=== PATIENT | male | born 1940 | race Caucasian/White ===

== ENCOUNTER 2018-02-03 06:50 | Inpatient (IN) | payer OTHER ==
[~2018-02-03] VITALS: Ht 167.6 cm; Wt 121.9 kg
[~2018-02-03 06:50] MED LIST: DOXYCYCLINE 10100 MG PO; NOHOMEMEDICATIONS
[2018-02-03 06:56] VITALS: BP 147/78
[2018-02-03] MEDS ORDERED: SIMVASTATIN40 MG PO (06:59)
[2018-02-03] MEDS ORDERED: PRIMIDONE 250M250 M1 PO (07:08)
[2018-02-03 07:17] LABS: ABSOLUTE EOSINOPHILS 0.1 thou/uL (0.0-0.7); ABSOLUTE LYMPHOCYTES 1.6 thou/uL (0.8-5.3); ABSOLUTE NEUTROPHILS 5.9 thou/uL (1.6-8.1); BASOPHILS 0.5 %; EOSINOPHILS 1.5 %; HEMATOCRIT 43.7 % (42.0-52.0); HEMOGLOBIN 14.7 gm/dL (14.0-18.0); LYMPHOCYTES 18.8 %; MCH 31.9 pg (26.0-34.0); MCHC 33.6 g/dL (28.0-37.0); MCV 94.8 fL (80.0-100.0); MONOCYTES 11.9 %; MPV 7.7 fl. (7.2-11.1); NUCLEATED RBCS 0 /100WBC; PLATELET COUNT* 202 thou/uL (150-400); POLYS 67.3 %; RDW-CV 13.5 % (10.5-14.5); WBC 8.8 thou/uL (4.0-11.0)
[2018-02-03 07:35] LABS: ANION GAP 9 mmol/L (7-16); BUN 19 mg/dL (7-18); CALCIUM 8.6 mg/dL (8.5-10.1); CHLORIDE 104 mmol/L (98-107); CO2 27 mmol/L (21-32); CREATININE 0.8 mg/dL (0.6-1.3); GLUCOSE 117 mg/dL (70-99); POTASSIUM 4.1 mmol/L (3.5-5.1); SODIUM 140 mmol/L (136-145)
[2018-02-03 07:46] LABS: ALBUMIN 3.3 g/dL (3.4-5.0); ALKALINE PHOSPHATASE 65 U/L (46-116); LIPASE 110 U/L (73-393); MAGNESIUM 2.1 mg/dL (1.8-2.4); NT-PRO BRAIN NAT PEPTIDE 94 pg/mL (<300); SGOT 14 U/L (15-37); SGPT 19 U/L (30-65); TOTAL BILIRUBIN 0.7 mg/dL (<0.1-1.0); TROPONIN-I LEVEL <0.06 ng/mL (<0.06)
[2018-02-03 09:43] VITALS: BP 124/82
[2018-02-03 11:30] VITALS: BP 142/86
[2018-02-03 15:48] VITALS: BP 146/77
--- NOTE | 2018-02-03 16:28 | EKG ---
[place] [address] ELECTROCARDIOGRAM REPORT Name: JEREMIAH GARZA Room: [address] IN [facility].#: [id number] Admission: 02/03/18 Attend Phys: Andrea Brooks MD Discharge: Date of : 38 Report #: [id number] THIS REPORT FOR: //name// [facility] ED Test Date: 2018-02-03 Test Time: 06:55:31 Pat Name: JEREMIAH GARZA Department: Room: Gender: [employer]er: : 1940 Requested By: Justin Jones Order Number: [id number] MD: Jered Martinez Measurements Intervals Nadeau Rate: 67 P: 27 CT: 174 QRS: -39 QRSD: 98 T: 12 QT: 390 QTc: 412 Interpretive Statements Sinus rhythm Abnormal R-wave progression, late transition Left ventricular hypertrophy No previous ECG available for comparison Electronically Signed On 02-03-2018 16:28:41 CDT by Jered Martinez [email or web address] <ELECTRONICALLY SIGNED> By: Jered Martinez MD, [facility] 02/03/18 1628 [phone] Jered Martinez MD, FAC /EPI
--- NOTE | 2018-02-03 17:27 | 2DMMODE ---
[place] [address] 2 D/M-MODE ECHOCARDIOGRAM Name: JEREMIAH GARZA Room: [address] IN [facility]#: [id number] Admission: 02/03/18 Attend Phys: Andrea Brooks, Discharge: Date of : 38 Date of Service: 02/03/18 1727 Report #: [id number] THIS REPORT FOR: //name// APPROVED REPORT Study performed: 02/03/2018 14:40:49 EXAM: Comprehensive 2D, Doppler, and color-flow Echocardiogram Patient Location: In-Patient Room #: [facility] Status: routine BSA: 2.26 HR: 72 bpm BP: 142/86 mmHg Rhythm: NSR Other Information Study Quality: Good Indications Chest Pain 2D Dimensions LVEF(%): 51.69 (>50%) IVSd: 13.80 (7-11mm) LVOT Diam: 20.24 (18-24mm) LVDd: 48.01 mm PWd: 12.22 (7-11mm) Ascending Ao: 36.25 (22-36mm) LVDs: 35.31 (25-40mm) Aortic Root: 37.97 mm Ford's LVEF: 51.69 % Volumes Left Atrial Volume (Systole) LA ESV Index: 24.40 mL/m2 Aortic Valve AoV Peak Rich.: 2.53 m/s AO Peak Gr.: 25.54 mmHg LVOT Max P.34 mmHg AO Mean Gr.: 15.00 mmHg LVOT Mean P.74 mmHg LVOT Max V: 0.91 m/s AO V2 VTI: 53.37 cm LVOT Mean V: 0.61 m/s DIANA (VTI): 1.25 cm2 LVOT V1 VTI: 20.81 cm Mitral Valve E/A Ratio: 0.83 [place] [address] 2 D/M-MODE ECHOCARDIOGRAM Name: JEREMIAH GARZA Room: [address] IN .R.#: [id number] Admission: 02/03/18 Attend Phys: Andrea Brooks, Discharge: Date of : 38 Date of Service: 02/03/18 1727 Report #: [id number] MV Decel. Time: 205.12 ms MV E Max Rich.: 0.75 m/s MV PHT: 59.49 ms MVA (PHT): 3.70 cm2 TDI E/Lateral E': 6.25 E/Medial E': 10.71 Medial E' Rich.: 0.07 m/s Lateral E' Rich.: 0.12 m/s Pulmonary Valve PV Peak Rich.: 0.99 m/s PV Peak Gr.: 3.92 mmHg Tricuspid Valve TR Peak Gr.: 32.35 mmHg RVSP: 37.00 mmHg Left Ventricle The left ventricle is normal size. There is normal LV segmental wall motion. There is normal left ventricular wall thickness. Left ventricular systolic function is normal. The left ventricular ejection fraction is within the normal range. LVEF is 55-60%. Grade I - abnormal relaxation pattern. Right Ventricle The right ventricle is normal size. The right ventricular systolic function is normal. Atria The left atrium size is normal. The right atrium size is normal. Aortic Valve Moderate aortic valve sclerosis. Mild aortic regurgitation. Mild aortic stenosis. Mitral Valve The mitral valve is normal in structure. Trace mitral regurgitation. No evidence of mitral valve stenosis. Tricuspid Valve The tricuspid valve is normal in structure. Trace tricuspid regurgitation. The RVSP is 35-40 mmHg. Pulmonic Valve The pulmonary valve is normal in structure. There is no pulmonic [place] [address] 2 D/M-MODE ECHOCARDIOGRAM Name: JEREMIAH GARZA Room: [address] IN [facility]#: [id number] Admission: 02/03/18 Attend Phys: Andrea Brooks, Discharge: Date of : 38 Date of Service: 02/03/18 1727 Report #: [id number] Great Vessels The aortic root is normal in size. IVC is normal in size and collapses with >50% inspiration Pericardium There is no pericardial effusion. <Conclusion> The left ventricle is normal size. There is normal left ventricular wall thickness. Left ventricular systolic function is normal. The left ventricular ejection fraction is within the normal range. LVEF is 55-60%. Grade I - abnormal relaxation pattern. The right ventricle is normal size. The left atrium size is normal. Moderate aortic valve sclerosis. Mild aortic regurgitation. Mild aortic stenosis. The mitral valve is normal in structure. Trace mitral regurgitation. The tricuspid valve is normal in structure. Trace tricuspid regurgitation. The RVSP is 35-40 mmHg. IVC is normal in size and collapses with >50% inspiration There is no pericardial effusion. There is normal LV segmental wall motion. <ELECTRONICALLY SIGNED> By: Jered Martinez MD, FACC 02/03/181726 26 26 Jered Martinez MD, FACC /INF
[2018-02-03 19:50] VITALS: BP 146/76
[2018-02-04] VITALS: BP 125/66
[2018-02-04 00:55] LABS: ABSOLUTE EOSINOPHILS 0.1 thou/uL (0.0-0.7); ABSOLUTE LYMPHOCYTES 1.2 thou/uL (0.8-5.3); ABSOLUTE MONOCYTES 1.5 thou/uL (0.0-1.2); ABSOLUTE NEUTROPHILS 6.4 thou/uL (1.6-8.1); BASOPHILS 0.4 %; EOSINOPHILS 1.5 %; HEMATOCRIT 42.4 % (42.0-52.0); HEMOGLOBIN 14.2 gm/dL (14.0-18.0); LYMPHOCYTES 13.2 %; MCH 32.1 pg (26.0-34.0); MCHC 33.5 g/dL (28.0-37.0); MONOCYTES 16.3 %; MPV 7.7 fl. (7.2-11.1); NUCLEATED RBCS 0 /100WBC; PLATELET COUNT* 173 thou/uL (150-400); POLYS 68.6 %; RBC 4.41 mil/uL (4.50-6.00); RDW-CV 13.2 % (10.5-14.5); WBC 9.4 thou/uL (4.0-11.0)
[2018-02-04 01:27] LABS: CALCIUM 8.3 mg/dL (8.5-10.1); CREATININE 0.7 mg/dL (0.6-1.3); POTASSIUM 4.5 mmol/L (3.5-5.1)
[2018-02-04 04:39] VITALS: BP 127/74
[2018-02-04 09:00] VITALS: BP 135/69
[2018-02-04 11:42] VITALS: BP 153/70
[2018-02-04 15:58] VITALS: BP 143/77
--- NOTE | 2018-02-04 16:45 | CARDNUC ---
[place] [address] CARDIAC NUCLEAR IMAGING REPORT Name: JEREMIAH GARZA Room: [address] IN [facility]#: [id number] Admission: 02/03/18 Attend Phys: Andrea Brooks, Discharge: Date of : 38 Date of Service: 02/04/18 1645 Report #: [id number] THIS REPORT FOR: //name// APPROVED REPORT Study performed: 02/03/2018 12:20:00 Exam: Nuclear Stress Test Indication: chest pain Patient Location: Out-Patient Stress Tech: Ida Smooth Stress Nurse: Inez Soto RN Ht: 5 ft 6 in Wt: 268 lbs BSA: 2.26 m2 BMI: 43.25 Medical History Medical History: past hx htn, hyperlipidemia Medications: aspirin, enoxaparin, hydralazine, morphine Allergies: nkda Cardiac Risk Factors: age, hyperlipidemia,past tobacco Previous Cardiac Procedures: none Exercise History: Sedentary pt has murmer Stress Test Details Stress Test: Pharmacologic stress testing performed using 0.4 mg of regadenoson per 5 mL given IV over 10 seconds. Reason for pharmacologic stress test: physical limitation. HR Resting HR: 82 bpm Max Heart Rate (APMHR): 142 bpm Max HR Achieved: 96 bpm Target HR (85% APMHR): 120 bpm % of APMHR: 67 Recovery HR: 101 bpm HR response to stress: Normal HR response to stress BP Resting BP: 141/81 mmHg Max BP: 157/74 mmHg BP response to stress: Normal blood pressure response to stress. ECG Resting ECG: [place] [address] CARDIAC NUCLEAR IMAGING REPORT Name: JEREMIAH GARZA Room: [address]#: [id number] Admission: 02/03/18 Attend Phys: Andrea Brooks, Discharge: Date of : 38 Date of Service: 02/04/18 1645 Report #: [id number] Stress ECG: Sinus Rhythm ST Change: None Arrhythmia: None Recovery ECG: Sinus Rhythm Recovery ST Change: None Clinical Reason for Termination: Completed protocol Stress Symptoms: None Exercise duration: 0 min sec Exercise capacity: 1 METs Functional Aerobic Impairment 67% Nurse Comments pt tolerated well Stress ECG Conclusion negative NM EXAM: Myocardial Perfusion REST/STRESS Imaging Protocol: Rest Tc-99m/Stress Tc-99m 2 days Resting Data Rest SPECT myocardial perfusion imaging was performed in supine position 30 minutes following the intravenous injection of 39.8 mCi of Tc-99m Sestamibi. Time of rest injection: 1420 Date: 02/03/2018 The images were gated to evaluate regional wall motion and calculate left ventricular ejection fraction. Administration Route: IV Administration Site: Right Hand Pharmacologic Stress Pharmacologic stress test was performed by injecting Regadenoson 0.4 mg IV push followed by the intravenous injection of 41.2 mCi of Tc-99m Sestamibi. Time of stress injection: 929 Date: 02/04/2018 Administration Route: IV Administration Site: Right Hand Heart Rate at time of stress injection: 96 bpm. Gated Stress SPECT was performed 40 minutes after stress injection. The images were gated to evaluate regional wall motion and calculate left ventricular ejection [place] [address] CARDIAC NUCLEAR IMAGING REPORT Name: JREEMIAH GARZA Room: [address] IN [facility]#: [id number] Admission: 02/03/18 Attend Phys: Andrea Brooks, Discharge: Date of : 38 Date of Service: 02/04/18 1645 Report #: [id number] Study: Fair Artifact: Moderate Increased GI uptake Lung Uptake: Normal Study Data At rest, the left ventricular ejection fraction was 46%.. Post stress, the left ventricular ejection was 52%.. Perfusion Review of SPECT images reveal a large fixed inferior defect,mild intensity, no other defects Images were reviewed using [employer]. Wall Motion normal in all segments, elevated end diastolic volume, mild global resting hypokinesis Nuclear Conclusion ECG Findings: negative for ischemia Clinical Findings: negative for ischemia Nuclear Findings: negative for ischemia Exercise Capacity: not assessed Left Ventricular Function: abnormal Risk Study: low This study reveals a low likelihood for ischemia, the inferior defect may be more likely due to artifact, rather than prior IN. <Conclusion> negative <ELECTRONICALLY SIGNED> By: Hakeem Blanc MD, [facility] 02/04/181644 44 44 Hakeem Blanc MD, FAC /INF
[2018-02-04 17:52] VITALS: BP 143/77
== END 2018-02-04 18:30 | disposition home or self-care (01) | DRG 392 ==
LOC: M.ERS 06:50 → M.TBA-ER 09:09 → M.2W 09:09
PROVIDERS: Emergency Medicine Emergency Medical Services; ADMIT Internal Medicine
DX: K21.9 Gastro-esophageal reflux disease without esophagitis (principal); Z68.41 Body mass index [BMI] 40.0-44.9, adult; I20.9 Angina pectoris, unspecified; E78.00 Pure hypercholesterolemia, unspecified; R01.1 Cardiac murmur, unspecified; E78.5 Hyperlipidemia, unspecified; I35.0 Nonrheumatic aortic (valve) stenosis; M19.90 Unspecified osteoarthritis, unspecified site; E66.9 Obesity, unspecified; Z98.52 Vasectomy status; Z87.891 Personal history of nicotine dependence